=== PATIENT | female | born 1940 | race Caucasian/White ===

== ENCOUNTER 2018-08-27 08:00 | Inpatient (IN) | payer OTHER ==
[~2018-08-27] VITALS: Ht 142.2 cm; Wt 59.0 kg
[2018-09-09] MEDS ORDERED: NORVASC5 MG PO (15:22)
[2018-09-09] MEDS ORDERED: LIPITOR40 MG PO (15:23)
[2018-09-09] MEDS ORDERED: NAMENDA10 MG PO (15:23)
[2018-09-09] MEDS ORDERED: LOVAZA1 GM PO (15:24)
[2018-09-09] MEDS ORDERED: ZANT PO (15:24)
[2018-09-09] MEDS ORDERED: TOPROL XL25 M1 PO (15:25)
[2018-09-09] MEDS ORDERED: CALTRATE 600 +1 EACH PO (15:26)
[2018-09-09] MEDS ORDERED: [UNRECOGNIZED DRUG - OTHER] PO (15:26)
[2018-09-09] MEDS ORDERED: LIPO-FLAVONOID1 EACH PO (15:27)
[2018-09-14] MEDS ORDERED: RIVASTIGMINE1 EAC1 TOP (08:13)
[2018-09-14] MEDS ORDERED: RANITIDINE HCL150 MG PO (08:15)
[2018-09-16] MEDS ORDERED: DUI500 PO (15:38)
[2018-09-16] MEDS ORDERED: ELIQUIS2.5 MG PO (15:38)
[2018-09-16] MEDS ORDERED: PERCOCET 5-3251 EACH PO (15:38)
== END 2018-09-16 20:49 | DRG 470 ==
LOC: SURH 09-10 09:30 → O/R 09-14 05:30 → SURG 09-14 05:30 → SURH 09-14 09:30 → SURG 09-14 10:07 → SURH 09-14 16:30 → SURG 09-16 20:49
PROVIDERS: ADMIT Orthopaedic Surgery
PROC: 0MNN0ZZ Release Right Knee Bursa and Ligament, Open Approach (ICD-10-PCS; 2018-09-14)
PROC: 0SRC0J9 Replacement of Right Knee Joint with Synthetic Substitute, Cemented, Open Approach (ICD-10-PCS; principal; 2018-09-14 16:30)
DX: M17.11 Unilateral primary osteoarthritis, right knee (principal); M80.00XA Age-related osteoporosis with current pathological fracture, unspecified site, initial encounter for fracture; D62 Acute posthemorrhagic anemia; I10 Essential (primary) hypertension; G30.0 Alzheimer's disease with early onset; F02.80 Dementia in other diseases classified elsewhere, unspecified severity, without behavioral disturbance, psychotic disturbance, mood disturbance, and anxiety